=== PATIENT | male | born 1935 | race Caucasian/White ===

== ENCOUNTER → 2017-06-24 | Outpatient (CLI) | payer MEDICARE, OTHER ==
[~2017-06-24] MED LIST: ASPI-770 PO; CHOL10002 PO; FENO54TA17 PO; FISH OIL OMEGA1 EACH PO; GLUC1500 PO; OXYC-302 PO; POTA10TA17 PO
== END | disposition home or self-care (01) ==
LOC: RAD 11:07
PROVIDERS: ATTEND Physician Assistant Surgical
DX: N20.0 Calculus of kidney (principal)
CPT/HCPCS: 74000